=== PATIENT | female | born 1980 | race Caucasian/White ===

== ENCOUNTER 2017-02-12 21:37 | Emergency (ER) | payer MEDICAID, OTHER ==
[~2017-02-12] VITALS: Ht 167.6 cm; Wt 98.0 kg
[~2017-02-12 21:37] MED LIST: CEPH500T6; IBUP100T33; METR500T14; SULF1TAB7
[2017-02-12 22:50] VITALS: Ht 167.6 cm; Wt 98.0 kg
--- NOTE | 2017-02-13 00:36 | RADRPT ---
PROCEDURE: US right lower extremity venous Doppler CLINICAL INDICATION: Right leg swelling TECHNIQUE: Multiple sonographic images of the right lower extremity deep venous system was obtaine d utilizing grayscale, color-flow, compressive sonography and Doppler imaging with augmentation. COMPARISON: No pertinent prior examinations were submitted for comparison. FINDINGS: There is normal compressibility and flow within the right common femoral, superficial femoral, popli teal, and peroneal veins. IMPRESSION: No sonographic evidence for deep venous thrombosis. RPTAT: HIKT .Gareth Spain MD, MD Date Time Electronically viewed and signed by .Gareth Spain MD, MD on 02/13/2017 00:36 .T/
[2017-02-13] MEDS ORDERED: IBUP800T25 PO (00:52)
--- NOTE | 2017-02-13 01:00 | ERD ---
ER Documentation Chief Complaint Date/Time DATE: 02/13/17 TIME: 00:55 Chief Complaint Right Leg pain and swelling since last friday HPI Patient is a 36-year-old female who has varicose veins that she has had for several years on the bilateral lower extremities but she has had pain over the anterior surface of her right lower extremity in the mid herring over varicose vein. She has not had any chest pain or shortness of breath. She has no tenderness or pain behind the calf. She has had no fever. No recent travel. She is not on any control. Denies trauma. She has taken 600 mg Motrin at home which does alleviate her pain temporarily. ROS All systems reviewed and are negative except as per history of present illness. Medications Home Meds Active Scripts Ibuprofen* (Motrin*) 800 Mg Tab, 800 MG PO Q6, #30 TAB Prov:EZIO FLORES PA-C 02/13/17 Reported Medications Ibuprofen (Motrin) 100 Mg Tablet 08/12/10 Sulfamethoxazole-Trimethoprim* (Bactrim* DS) 1 Tab Tab 08/12/10 Cephalexin Monohydrate (Cephalexin) 500 Mg Tablet 08/12/10 Metronidazole (Flagyl) 500 Mg Tab 08/11/10 Allergies Allergies: Coded Allergies: No Known Allergy (Verified Allergy, Unknown, 08/11/10) PMhx/Soc History of Surgery: Yes () Anesthesia Reaction: No Hx Neurological Disorder: No Hx Respiratory Disorders: No Hx Cardiac Disorders: No Hx Psychiatric Problems: No Hx Miscellaneous Medical Probl: Yes (varicose veins) Hx Alcohol Use: No Hx Substance Use: No Hx Tobacco Use: No Smoking Status: Never smoker FmHx Family History: No diabetes Physical Exam Vitals Vital Signs Date Time Temp Pulse Resp B/P Pulse Ox O2 Delivery O2 Flow Rate FiO2 02/12/17 22:50 98.6 88 18 138/84 100 Physical Exam General: well developed, well nourished, alert, nontoxic, no distress Head: normocephalic, atraumatic Respiratory: Clear to auscaultation bilaterally, speaks in full sentences, no use of accesory muscles or labored breathing, no rales, ronchi, or wheezing Cardiovascular: RRR, No murmurs GI: soft, non tender, non distended, negative murphys sign, negative mcburneys point tenderness, no cva tenderness bilaterally, no rebound or guarding Back: no midline tenderness, no step offs or bony abnormalities, sensation to light touch in tact Extremities: Bilateral lower extremities have multiple varicose veins, no tenderness redness or swelling or warmth behind the calf bilaterally, no unilateral swelling, the right anterior herring has some small area of varicose vein that is slightly more tender and mildly pink Procedures/MDM 28-year-old female presents with thrombophlebitis of the right lower extremity. Vital signs are normal. Neurovascular intact. DVT ultrasound was negative. Patient has had good relief of her symptoms at home with ibuprofen and she is discharged with ibuprofen. My discharge instructions. Departure Diagnosis: Primary Impression: Thrombophlebitis Condition: Stable Patient Instructions: Thrombophlebitis, Superficial Additional Instructions: Llame al doctor MAANA y aakash brittanie CRESENCIO PARA DENTRO DE 1-2 ROBERTS.Dgale a la secretaria que nosotros le instruimos hacer esta cresencio.Avise o llame si [place] condicin se empeora antes de la cresencio. Regresa aqui si peor o no mejor. EZIO FLORES PA-C Feb 13, 2017 01:00
[2017-02-13 01:14] VITALS: BP 137/89; PULSE 77; RESP 17; TEMP 98.1
== END 2017-02-13 01:14 | disposition home or self-care (01) ==
LOC: FTE 21:37
DX: I80.3 Phlebitis and thrombophlebitis of lower extremities, unspecified (principal)
CPT/HCPCS: 93971; Z7502

== ENCOUNTER 2017-10-31 01:51 | Emergency (ER) | payer OTHER ==
[~2017-10-31] VITALS: Ht 170.2 cm; Wt 93.0 kg
[~2017-10-31 01:51] MED LIST changes: +IBUP800T25 PO
[2017-10-31 01:56] VITALS: Ht 170.2 cm; Wt 93.0 kg
--- NOTE | 2017-10-31 02:31 | ERD ---
ER Documentation Chief Complaint Chief Complaint c/o elevated BP x 3 days despite meds. (+) HERNANDEZ and nausea. HPI 37-year-old female with history of hypertension presents with a chief complaint of hypertension. Patient is taking losartan. Patient has increased her dose 1 week ago. Patient is wondering if she should be on another medication. Denies dizziness, headache, presyncope, chest pain, shortness of breath. Patient denies previous NH/VT E, extremity swelling, fatigue, irregular heartbeat, palpitations, nausea, vomiting, epigastric pain. Patient has no other complaints describes no other associated manifestations. Nursing notes have been reviewed and are consistent with history given. ROS All systems reviewed and are negative except as per history of present illness. Medications Home Meds Active Scripts Ibuprofen* (Motrin*) 800 Mg Tab, 800 MG PO Q6, #30 TAB Prov:EZIO FLORES PA-C 02/13/17 Reported Medications Ibuprofen (Motrin) 100 Mg Tablet 08/12/10 Sulfamethoxazole-Trimethoprim* (Bactrim* DS) 1 Tab Tab 08/12/10 Cephalexin Monohydrate (Cephalexin) 500 Mg Tablet 08/12/10 Metronidazole (Flagyl) 500 Mg Tab 08/11/10 Allergies Allergies: Coded Allergies: No Known Allergy (Verified Allergy, Unknown, 08/11/10) PMhx/Soc History of Surgery: Yes () Anesthesia Reaction: No Hx Neurological Disorder: No Hx Respiratory Disorders: No Hx Cardiac Disorders: No Hx Psychiatric Problems: No Hx Miscellaneous Medical Probl: Yes (varicose veins, HTN) Hx Alcohol Use: No Hx Substance Use: No Hx Tobacco Use: No Smoking Status: Never smoker Physical Exam Vitals Vital Signs Date Time Temp Pulse Resp B/P Pulse Ox O2 Delivery O2 Flow Rate FiO2 10/31/17 01:56 98.1 89 18 178/80 100 Physical Exam Const: Well-appearing. No acute distress. Head: Normocephalic, Atraumatic. Eyes: Non-injected; No discharge. EOMI and MUNA bilaterally. Ears: Normal External Ears, EACs clear, TM normal bilaterally without erythema. Nose: Normal external nose; no discharge, or sinus tenderness. Oral: No oral edema visualized. Mucous membranes moist and pink. Neck: No cervical lymphadenopathy, or masses palpated. Supple ~ No meningismus. Pulm: Good air movement in upper and lower respiratory tracts. Clear to auscultation bilaterally. No dyspnea or stridor. Cardio: Regular rate and rhythm; No murmurs, gallops or rubs auscultated. Radial pulses 2+ bilaterally. No cyanosis noted. Capillary refill less than 2 seconds. Abd: Normal bowel sounds. Soft, non tender, non distended. MS: Normal motor strength, normal tone with gross examination. Skin: No petechiae or rashes. Good turgor. Back: No midline, flank or CVA tenderness. Ext: No edema. Normal movement of all extremities grossly observed. Neur: Neurovascularly intact bilaterally. Psych: Normal Mood and Affect. Procedures/MDM 37-year-old female presented with a chief complaint of hypertension. Taking losartan. Up to dose to 50 mg per day. States that she measured her blood pressure and it was all the way to 140 systolic. No symptoms concerning for endorgan damage. Physical exam unremarkable. No evidence of endorgan damage. EKG was obtained read by me as normal sinus rhythm, no ST elevation or depression, no T-wave abnormalities, normal axis, good baseline. No suspicion for hypertensive urgency/emergency, ACS, pericarditis, endangerment of the airway, pulmonary embolism, or other cardiopulmonary pathologies. Most likely diagnosis is asymptomatic hypertension. I recommended that she follow-up with her PCP in the next 1-3 days. Have instructed to continue medication as prescribed. I have spoke with the patient regarding their condition and future management. They have verbally responded that they understand their status and treatment plan. The patients vitals are stable, and their current condition is appropriate for discharge. The patient will be given discharge instructions with return precautions. Departure Diagnosis: Primary Impression: Hypertension Hypertension type: unspecified Qualified Code: I10 - Hypertension, unspecified type Condition: Stable Patient Instructions: High Blood Pressure (Hypertension) Referrals: LUCRETIA IZQUIERDO MD (PCP) Additional Instructions: Kiesha un seguimiento con [place] PCP dentro de los prximos 1-3 rodriguez para brittanie evaluaci n ms completa y brittanie posible derivacin a un especialista. Devuelva el departamento de emergencia inmediatamente si los sntomas empeoran o cambian. Si tiene alguna pregunta con respecto a los medicamentos, consulte con [place] farmac utico o con nosotros antes de salir. Si se producen reacciones adversas mientras rené murtaza medicamentos, suspenda el tratamiento y regrese inmediatamente al servicio de urgencias. RUSSELL GARCIA PA-C Oct 31, 2017 02:31
[2017-10-31 03:04] VITALS: BP 133/76; PULSE 93; RESP 18; TEMP 98.1
== END 2017-10-31 03:04 | disposition home or self-care (01) ==
LOC: FTE 01:51
DX: I10 Essential (primary) hypertension (principal)
CPT/HCPCS: 93005; Z7502

== ENCOUNTER 2018-12-22 23:17 | Emergency (ER) | payer OTHER ==
[~2018-12-22] VITALS: Ht 175.3 cm; Wt 99.9 kg
[~2018-12-22 23:17] MED LIST changes: -IBUP800T25 PO; +IBUP800T48 PO; +METR-121; -METR500T14
[2018-12-22 23:22] VITALS: Ht 175.3 cm; Wt 99.9 kg
--- NOTE | 2018-12-23 01:04 | ERD ---
ER Documentation Chief Complaint Chief Complaint PRODUCTIVE COUGH X 3 DAYS HPI 38-year-old female, presents the emergency department, complaining of worsening of productive cough during the last 3 days, associated with a fever, mild shortness of breath, sore throat and general malaise. ROS All systems reviewed and are negative except as per history of present illness. Medications Home Meds Active Scripts Ibuprofen* (Motrin*) 800 Mg Tab, 800 MG PO Q6, #30 TAB Prov:EZIO FLORES PA-C 02/13/17 Reported Medications Ibuprofen (Motrin) 100 Mg Tablet 08/12/10 Sulfamethoxazole-Trimethoprim* (Bactrim* DS) 1 Tab Tab 08/12/10 Cephalexin Monohydrate (Cephalexin) 500 Mg Tablet 08/12/10 Metronidazole (Flagyl) 500 Mg Tab 08/11/10 Allergies Allergies: Coded Allergies: Sulfa (Sulfonamide Antibiotics) (Verified Allergy, Mild, 12/22/18) PMhx/Soc History of Surgery: Yes () Anesthesia Reaction: No Hx Neurological Disorder: No Hx Respiratory Disorders: No Hx Cardiac Disorders: No Hx Psychiatric Problems: No Hx Miscellaneous Medical Probl: Yes (varicose veins, HTN) Hx Alcohol Use: No Hx Substance Use: No Hx Tobacco Use: No Smoking Status: Never smoker Physical Exam Vitals Vital Signs Date Temp Pulse Resp B/P (MAP) Pulse Ox O2 O2 Flow FiO2 Time Delivery Rate 12/22/18 100.0 105 16 142/85 96 23:22 (104) Physical Exam Const: No acute distress Head: Atraumatic Eyes: Normal Conjunctiva ENT: Normal External Ears, Nose and Mouth. Neck: Full range of motion. No meningismus. Resp: Diffuse rhonchi to auscultation bilaterally Cardio: Regular rate and rhythm, no murmurs Abd: Soft, non tender, non distended. Normal bowel sounds Skin: No petechiae or rashes Back: No midline or flank tenderness Ext: No cyanosis, or edema Neur: Awake and alert Psych: Normal Mood and Affect Procedures/MDM Vital signs stable, no respiratory distress. Differential diagnosis include but not limited to: Respiratory infection bacterial/viral/fungal. Influenza, asthma, COPD, pneumonitis, allergies, GERD. Less likely foreign body aspiration, cardiac related. Physical examination and clinical presentation consistent most likely with viral infection with early superimposed bacterial infection. During the ED course the patient remained stable, no new complaints. Treatment options and clinical impression discussed with the patient who agrees with management. The patient is stable to be treated outpatient and will be discharged home. Some side effects of prescribed medications (headache, rash, nausea, vomiting, diarrhea, interactions with other medications) were reviewed. The patient needs to follow up with the primary care provider in the next 48h. If symptoms persist, worsen or new symptoms develop, then patient should return to the ED immediately. Disclaimer: Inadvertent spelling and grammatical errors are likely due to EHR/dictation software use and do not reflect on the overall quality of patient care. Also, please note that the electronic time recorded on this note does not necessarily reflect the actual time of the patient encounter. Departure Diagnosis: Primary Impression: Fever Additional Impression: Superimposed infection Condition: Stable Additional Instructions: Muchas melly por [facility] para [place] servicio. Esperamos que en [place] visita a la radames de emergencia [place] problema medico haya sido solucionado y que se sienta mucho mejor. Para estar seguros que [place] mejoria sigue en proceso, le pedimos el favor de hacer brittanie radha de seguimiento medico con [place] doctor primario en los proximos 2-4 ann. Lleve con usted estos documentos y las medicinas recetadas. Si murtaza sintomas empeoran, NO SE ESPERE, por favor regrese a radames de emergencia INMEDIATAMENTE. En lee ann que usted no tenga un mdico de atencin primaria: Llame al mdico o clnica comunitaria de referencia que aparece abajo chichi las horas de consultorio para hacer brittanie radha para que le vean. CLINICAS: [facility] [phone] [facility] [phone] [facility] [phone] [facility] [phone] [facility] [phone] [address] [facility] [phone] FREDA CHAVIS MD Dec 23, 2018 01:04
[2018-12-23] MEDS ORDERED: ACET325T33 PO (01:14)
[2018-12-23] MEDS ORDERED: INHA-3 MC (01:14)
[2018-12-23] MEDS ORDERED: AMOX500C2 PO (01:14)
[2018-12-23] MEDS ORDERED: ALBU8.5H8 INH (01:14)
[2018-12-23] MEDS ORDERED: AZIT250T PO (01:14)
[2018-12-23] MEDS ORDERED: ACETAMINOPHEN 325 MG TAB PO ONE (01:30)
== END 2018-12-23 01:34 | disposition home or self-care (01) ==
LOC: FTE 23:17
DX: A49.9 Bacterial infection, unspecified (principal); I10 Essential (primary) hypertension
CPT/HCPCS: Z7502; Z7610; 99283

== ENCOUNTER 2019-05-13 11:06 | Day surgery (SDC) | payer OTHER ==
[2019-05-12 16:31] VITALS: BMI 34.2
[~2019-05-13] VITALS: Ht 162.6 cm; Wt 99.8 kg
[2019-05-13] VITALS (12 sets, daily range): BP systolic 99–136; BP diastolic 56–81; PULSE 82–89; RESP 15–22; Ht 162.6 cm; Wt 99.8 kg
[~2019-05-13 11:06] MED LIST changes: +ACET325T33 PO; +ALBU8.5H8 INH; +AMOX500C2 PO; +AZIT250T PO; +INHA-3 MC; +LACTATED RINGER'S 1,000 ML IV SCH
[2019-05-13] MEDS ORDERED: LOSA50TA14 PO (11:36)
[2019-05-13] MEDS ORDERED: BECL10.62 IH (11:37)
[2019-05-13] MEDS ORDERED: ALBU8.5H8 INH (11:37)
--- NOTE | 2019-05-13 13:10 | PREAC ---
Date/Time of Note Date/Time of Note DATE: 05/13/19 TIME: 13:05 Anesthesia Eval and Record Evaluation Time Pre-Procedure Interview DATE: 05/13/19 TIME: 13:05 Age 38 Sex female NPO: 8 hrs (sip water with BP med this am ) Preoperative diagnosis uterine fibroids Planned procedure hysteroscopy, myomectomy Past Medical History Past Medical History: Includes Cardio: HTN, Dyslipidemia Pulm: Asthma (symptoms triggered by seasonal allergies and weather changes ) Hepatic: Other (URIBE (non alcoholic steato hep)) GI: Obesity (bmi 37.8) Surgery & Anesthesia Issues No known issue Meds Anticoagulation: No Beta Tamy within 24 hr: No Reason Beta Tamy not given: Pt. not on B-Tamy Reported Medications Beclomethasone Dipropionate (Qvar Redihaler (80 MCG)) 10.6 Gm Hfa.aeroba, 10.6 GM IH BID, INH 05/13/19 Albuterol Sulfate* (Proair HFA*) 8.5 Gm Hfa.aer.ad, 2 PUFF INH Q4H PRN for WHEEZING AND SOB, #1 INHALER 05/13/19 Losartan Potassium* (Losartan Potassium*) 50 Mg Tablet, 50 MG PO DAILY, TAB 05/13/19 Discontinued Reported Medications Ibuprofen (Motrin) 100 Mg Tablet 08/12/10 Sulfamethoxazole-Trimethoprim* (Bactrim* DS) 1 Tab Tab 08/12/10 Cephalexin Monohydrate (Cephalexin) 500 Mg Tablet 08/12/10 Metronidazole (Flagyl) 500 Mg Tab 08/11/10 Discontinued Scripts Acetaminophen* (Tylenol*) 325 Mg Tablet, 2 TAB PO Q8 PRN for PAIN AND OR ELEVA RADHA TEMP, #20 TAB Prov:FREDA COSTELLO MD 12/23/18 Inhaler, Assist Devices (Compact Space Chamber) 1 Each Spacer, EACH MC Q4H WHILE AWAKE PRN for COUGH, #1 Prov:FREDA COSTELLO MD 12/23/18 Albuterol Sulfate* (Proair HFA*) 8.5 Gm Hfa.aer.ad, 2 PUFF INH Q4H PRN for WHEEZING AND SOB, #1 INHALER Prov:FREDA COSTELLO MD 12/23/18 Azithromycin* (Zithromax*) 250 Mg Tablet, 250 MG PO .ZPACK DIRECTED, #6 TAB TAKE 500 MG (2 TABS) THE FIRST DAY THEN 250 MG (1 TAB) DAYS 2-5 Prov:FREDA COSTELLO MD 12/23/18 Amoxicillin* (Amoxicillin*) 500 Mg Cap, 500 MG PO TID for 7 Days, CAP Prov:FREDA COSTELLO MD 12/23/18 Ibuprofen* (Motrin*) 800 Mg Tab, 800 MG PO Q6, #30 TAB Prov:EZIO FLORES PA-C 02/13/17 Current Medications Lactated Ringer's 1,000 ml @ 125 mls/hr Q8H IV Last administered on 05/13/19at 12:22; Admin Dose 125 MLS/HR; Start 05/13/19 at 06:00; Stop 05/13/19 at 13:59 Meds reviewed: Yes Allergies Coded Allergies: Sulfa (Sulfonamide Antibiotics) (Verified Allergy, Mild, 05/13/19) Allergies Reviewed: Yes Labs/Studies Labs Reviewed: Reviewed by anesthesiologist test: Negative Studies: ECG, CXR Pre-procedure Exam Last vitals Vital Signs Date Temp Pulse Resp B/P (MAP) Pulse Ox O2 O2 Flow FiO2 Time Delivery Rate 05/13/19 97.7 88 16 136/81 97 Room Air 12:44 (99) Airway: Adequate mouth opening, Adequate thyromental dist Mallampati: Mallampati II Teeth: Normal Lung: Normal Heart: Normal ASA Physical Status ASA physical status: 2 Emergency: None Planned Anesthetic General/MAC: ETT Planned Pain Management Parenteral pain med, Local by surgeon Pre-operative Attestations Prior to commencing anesthesia and surgery, the patient was re-evaluated, there was verification of: *The patient's identity *The results of appropriate recent lab work and preoperative vital signs *The above evaluation not changing prior to induction *Anesthetic plan, risk benefits, alternative and complications discussed with patient/family; questions answered; patient/family understands, accepts and wishes to proceed. NESTOR CURTIS May 13, 2019 13:10
[2019-05-13] MEDS ORDERED: LIDOCAINE 2% (SDV) 5 ML INJ ONE (13:14)
[2019-05-13] MEDS ORDERED: PROPOFOL 20 ML ONE (13:14)
[2019-05-13] MEDS ORDERED: FENTAnyl 50 MCG/ML VIAL ONE (13:15)
[2019-05-13] MEDS ORDERED: ROCURONIUM 50 MG INJ ONE (13:15)
[2019-05-13] MEDS ORDERED: MIDAZOLAM 1 MG/ML 2 ML INJ ONE (13:15)
[2019-05-13] MEDS ORDERED: CEFAZOLIN 1 GM INJ ONE (13:17)
--- NOTE | 2019-05-13 13:36 | HPN ---
Date/Time of Note Date/Time of Note DATE: 05/13/19 TIME: 13:35 Interval H&P Admission Note Pt. seen H&P reviewed: No system changes FREDO KEYES MD May 13, 2019 13:36
[2019-05-13] MEDS ORDERED: FAMOTIDINE 20 MG INJ ONE (13:53)
[2019-05-13] MEDS ORDERED: ONDANSETRON 4 MG INJ ONE (13:53)
[2019-05-13] MEDS ORDERED: METOCLOPRAMIDE 10 MG INJ ONE (13:53)
[2019-05-13] MEDS ORDERED: DEXAMETHASONE 4 MG/ML 5 ML INJ ONE (13:53)
[2019-05-13] MEDS ORDERED: MEPERIDINE 25 MG INJ IV PRN (14:00)
[2019-05-13] MEDS ORDERED: MIDAZOLAM 1 MG/ML 2 ML INJ IV PRN (14:00)
[2019-05-13] MEDS ORDERED: OXYCODONE/ACETAMINOPHEN (5/325) TAB PO PRN ×2 (14:00)
[2019-05-13] MEDS ORDERED: LABETALOL HCL 20MG INJ IV PRN (14:00)
[2019-05-13] MEDS ORDERED: ONDANSETRON 4 MG INJ IV PRN (14:00)
[2019-05-13] MEDS ORDERED: hydrALAzine 20 MG INJ IV PRN (14:00)
[2019-05-13] MEDS ORDERED: ALBUTEROL 0.083% (NEB) 2.5 MG/3 ML AMP HHN PRN (14:00)
[2019-05-13] MEDS ORDERED: HYDROmorphONE 1 MG/5 ML IV SYRINGE IV PRN ×3 (14:00)
[2019-05-13] MEDS ORDERED: EPHEDrine 25 MG/5 ML SYG ONE (14:13)
[2019-05-13] MEDS ORDERED: SUGAMMADEX SODIUM 200 MG/2 ML VIAL IV ONE (14:23)
--- NOTE | 2019-05-13 14:47 | SIPON ---
Date/Time of Note Date/Time of Note DATE: 05/13/19 TIME: 14:39 Operative Report Preoperative Diagnosis endometrial polyp/submucosal myoma Postoperative Diagnosis multiple endometrial polyps endometrial polypoid hyperplasia see pathologic report Operation/Procedure Performed hysteroscopic multiple polypectomy uterine curettage Surgeon see signature line assistant professor of chemistry MICHAEL Brooks Anesthesia: general Estimated blood loss: minimal Transfusion Required endometrial polyps uterine curettings Specimen endometrial polyps uterine curettings Grafts/Implants none Complications none FREDO KEYES MD May 13, 2019 14:47
--- NOTE | 2019-05-13 14:48 | PD.PPDC ---
FILLING TECHNICIAN Discharge Instruction Diagnosis [id number] Final Diagnosis: Eyspj7v see pathologic report Condition [id number] Patient Condition: Ovbyy4g Stable Diet Kmgtm0Oa Diet: Iqqwy9w Resume Regular Diet Activity/Restrictions [id number] Activity: Rptpk2h May Shower Wimux6Is Restrictions: Ofumj9d No Sexual Activity Nothing in the Vagina No [place] No Tampons, douche Return to clinic for [id number] HUMAN FACTORS SPECIALIST Instructions: [id number] Fever greater than 101 Chills Worsening abdominal pain Excessive Vaginal Bleeding More than 2 pads per hour Unable to tolerate diet FREDO KEYES MD May 13, 2019 14:48
[2019-05-13] MEDS ORDERED: LACTATED RINGER'S 1,000 ML IV SCH (15:00)
--- NOTE | 2019-05-13 15:03 | PAC ---
Date/Time of Note Date/Time of Note DATE: 05/13/19 TIME: 15:02 Post-Anesthesia Notes Post-Anesthesia Note Last documented vital signs bp 126/77 hr 89 spo2 96% temp 98.8 rr 16 Vital Signs Date Temp Pulse Resp B/P (MAP) Pulse Ox O2 O2 Flow FiO2 Time Delivery Rate 05/13/19 97.7 88 16 136/81 97 Room Air 12:44 (99) Activity: WNL Respiratory function: WNL Cardiovascular function: WNL Mental status: Baseline Pain reasonably controlled: Yes Hydration appropriate: Yes Nausea/Vomiting absent: Yes NESTOR CURTIS May 13, 2019 15:03
--- NOTE | 2019-05-14 10:43 | OPR ---
DATE OF OPERATION: 05/13/2019 PREOPERATIVE DIAGNOSIS: Endometrial polyp versus submucosal myoma. POSTOPERATIVE DIAGNOSIS: Endometrial polyp versus submucosal myoma. Possible endometrial polyploid hyperplasia. See pathological report. OPERATION PERFORMED: Hysteroscopic endometrial polypectomy, multiple and uterine curettage. ANESTHESIA: General. ANESTHESIOLOGIST: Olvin Davis CRNA. SURGEON: Immanuel Khoury MD ESTIMATED BLOOD LOSS: Negligible. PROCEDURE: Under proper induction of general anesthesia, the patient was placed in dorsal lithotomy position. Perineal area and vagina wall was prepped and draped in usual aseptic manner. On inspecti on, external genitalia revealed no gross abnormality. Bimanual examination, uterus was retroflexed a nd retroverted and size approximately 10 to 12 weeks of gestational size. No irregularity noted on t he surface. There was no palpable adnexal pathology. Segmentally the weighted speculum introduced, cervix was identified which was clear and parous appearing. Anterior lip of the cervix was grasped w ith a single tooth tenaculum. After the proper axis of the uterus was obtained, uterine cavity sound ed to 11 cm in depth. After the proper axis of the uterus was obtained and the hysteroscope was prep ared in the usual fashion, was introduced through the cervical os without any resistance, rather loos e, gradually introduced and the endocervical canal was visualized. There appeared to be polyploid ch anges and as we advanced multiple polyps were noted. It is more likely endometrial polypoid hyperpla travis rather than multiple endometrial polyps, and the fundus was identified and both ostia were clearl y seen. Picture was taken and the shaver was introduced into the uterine cavity and after the proper procedure done and the shaving started, which was continued in all directions. After approximately 15 minutes of procedure, multiple areas visualized and decided to do the traditional uterine c urettage with obtaining large amount of some necrotic tissue which was separately sent to pathology. After the uterine curettage was done and then rescoped and a large amount of polypoid tissue was rem iram and still the anterior aspect of the uterus some polyps were noted which was curetted and then r escoped and the procedure was completed and some tissue was taken and hysteroscope was removed, and a ll the instruments from the operative field was removed. Estimated blood loss was negligible. Proce dure was completed as the patient was sent to the recovery room in stable condition. Dictated By: IMMANUEL NEGRON/EMILIE Conf#: [id number] DID#: [id number]
== END 2019-05-13 16:47 | disposition home or self-care (01) ==
LOC: SDS 11:06
PROVIDERS: ATTEND Obstetrics & Gynecology
DX: D25.9 Leiomyoma of uterus, unspecified (principal); N92.1 Excessive and frequent menstruation with irregular cycle; I10 Essential (primary) hypertension; Z88.2 Allergy status to sulfonamides; K21.9 Gastro-esophageal reflux disease without esophagitis; D50.9 Iron deficiency anemia, unspecified; J45.20 Mild intermittent asthma, uncomplicated; E11.65 Type 2 diabetes mellitus with hyperglycemia
CPT/HCPCS: 58558; 88305; J0690; J1100; J2250; J2405; J2765; J3010; Z7512; Z7610